=== PATIENT | female | born 1945 | race Caucasian/White ===

== ENCOUNTER 2021-12-24 05:52 | Observation (INO) ==
[2021-12-24 06:19] LABS: Basophils # 0.1 10*3/uL (0.0-0.2); Basophils % 0.7 % (0.0-0.8); Eosinophils # 0.3 10*3/uL (0.0-0.87); Eosinophils % 2.8 % (0.00-10.9); Hemoglobin 13.6 GM/DL (12.0-16.0); Immature Granulocytes % 0.3 %; Immature Granulocytes Absolute 0.03 #; Lymphocytes # 0.7 10*3/uL (1.4-4.0); Lymphocytes % 7.5 % (21.3-54.2); Mean Corpuscular Volume 90.5 FL (87-102); Monocytes # 0.8 10*3/uL (0.11-0.8); Monocytes % 8.4 % (1.7-12.7); Neutrophils % 80.3 % (38.7-73.9); Platelet Count 262 T/CUMM (130-400); Red Blood Count 4.42 MC/CUMM (3.8-5.5); Red Cell Distribution Width 12.5 % (9.3-17.3); White Blood Count 9.9 T/CUMM (4-12)
[2021-12-24] MEDS ORDERED: SODIUM CHLORIDE 0.9% 1,000 ML IV STA (06:35)
[2021-12-24 06:57] LABS: Albumin 3.3 G/DL (3.4-5.0); Bilirubin,Total 0.6 MG/DL (0.20-1.00); Calcium 9.4 MG/DL (8.5-10.1); Osmolality,Calculated 278.8 MOS/KG (273-304); Potassium 3.8 MMOL/L (3.5-5.1); Total Protein 5.8 G/DL (6.4-8.2)
[2021-12-24 07:12] LABS: PT Patient Result 10.6 SECS (10.5-12.0); Partial Thromboplastin Time 23.4 SECS (23.8-32.1)
[2021-12-24 07:17] LABS: Mucus,Urine Occasional /LPF (Occasional); RBC,Urine 1 /HPF (0-4); Squamous Epithelial Cell,Urine Occasional /HPF (0-10)
[2021-12-24 07:19] LABS: Bilirubin,Urine Negative (Negative); Blood, Urine Negative (Negative); Glucose,Urine (UA) Negative (Negative); Ketones,Urine Negative (Negative); Nitrite,Urine Negative (Negative); Protein,Urine Negative (Negative); Urine Appearance Clear (Clear); Urine Color Yellow (Yellow); Urine Specific Gravity 1.025 (1.001-1.035); Urine Urobilinogen 0.2 eU/dL (<2.0); Urine pH 5.5 (4.5-8.0)
[2021-12-24] MEDS ORDERED: ONDANSETRON 4 MG/2 ML VIAL IV PRN (12:22)
[2021-12-24] MEDS ORDERED: ACETAMINOPHEN 325 MG TABLET PO PRN (12:22)
[2021-12-24] MEDS: PANTOPRAZOLE 40 MG VIAL IV SCH (12:58)
[2021-12-24] MEDS: DOCUSATE SODIUM 100 MG CAPSULE PO SCH ×2 (13:01→21:39)
[2021-12-24] MEDS: SODIUM CHLORIDE 0.9% 1,000 ML IV SCH ×2 (13:02→21:50)
[2021-12-24] MEDS ORDERED: MAGNESIUM SULF RIDER 2 GM/50 ML PREMIX IV ONE (15:06)
[2021-12-24] MEDS ORDERED: traMADol 50 MG TABLET PO PRN (15:07)
[2021-12-24] MEDS ORDERED: traMADol 50 MG TABLET PO ONE (15:08)
[2021-12-24] MEDS ORDERED: cloNIDine 0.1 MG TABLET PO ONE (15:30)
[2021-12-24] MEDS: cloNIDine 0.1 MG TABLET PO SCH (21:39)
[2021-12-24] MEDS: hydroCHLOROthiazide 25 MG TABLET PO SCH (21:39)
[2021-12-24] MEDS: SPIRONOLACTONE 25 MG TABLET PO SCH (21:39)
[2021-12-25 05:20] LABS: Basophils # 0.1 10*3/uL (0.0-0.2); Basophils % 0.9 % (0.0-0.8); Eosinophils # 0.5 10*3/uL (0.0-0.87); Hematocrit 32.7 VOL% (35.7-47.0); Immature Granulocytes % 0.3 %; Immature Granulocytes Absolute 0.02 #; Lymphocytes # 2.3 10*3/uL (1.4-4.0); Lymphocytes % 33.1 % (21.3-54.2); Mean Corpuscular HGB Conc 33.6 GM/DL (32-36); Mean Corpuscular Volume 91.9 FL (87-102); Mean Platelet Volume 10.4 FL (9.6-12.0); Monocytes % 14.6 % (1.7-12.7); Neutrophils % 44.1 % (38.7-73.9); Platelet Count 208 T/CUMM (130-400); Red Blood Count 3.56 MC/CUMM (3.8-5.5); Red Cell Distribution Width 12.8 % (9.3-17.3); White Blood Count 6.9 T/CUMM (4-12)
[2021-12-25] MEDS: LEVOTHYROXINE 100 MCG TABLET PO SCH (05:52)
[2021-12-25] MEDS: SODIUM CHLORIDE 0.9% 1,000 ML IV SCH ×3 (05:53→23:06)
[2021-12-25] MEDS: ASPIRIN EC 81 MG TABLET PO SCH (09:44)
[2021-12-25] MEDS: SPIRONOLACTONE 25 MG TABLET PO SCH ×2 (09:44→20:55)
[2021-12-25] MEDS: DOCUSATE SODIUM 100 MG CAPSULE PO SCH ×2 (09:45→20:55)
[2021-12-25] MEDS: CITALOPRAM 20 MG TABLET PO SCH (09:45)
[2021-12-25] MEDS: cloNIDine 0.1 MG TABLET PO SCH ×2 (09:47→20:55)
[2021-12-25] MEDS: PANTOPRAZOLE 40 MG VIAL IV SCH (09:47)
[2021-12-25] MEDS: hydroCHLOROthiazide 25 MG TABLET PO SCH ×2 (09:47→20:54)
[2021-12-26] MEDS ORDERED: methylPREDNISolone ACETATE 40 MG/1 ML VIAL MISC INJ ONE (06:00)
[2021-12-26] MEDS ORDERED: LIDOCAINE 1% 20 ML VIAL MISC INJ ONE (06:00)
[2021-12-26] MEDS: SODIUM CHLORIDE 0.9% 1,000 ML IV SCH (06:26)
[2021-12-26 06:29] LABS: Basophils # 0.1 10*3/uL (0.0-0.2); Basophils % 0.7 % (0.0-0.8); Eosinophils # 0.5 10*3/uL (0.0-0.87); Eosinophils % 6.8 % (0.00-10.9); Hemoglobin 10.9 GM/DL (12.0-16.0); Immature Granulocytes % 0.1 %; Immature Granulocytes Absolute 0.01 #; Lymphocytes # 2.2 10*3/uL (1.4-4.0); Lymphocytes % 32.8 % (21.3-54.2); Mean Corpuscular Volume 91.4 FL (87-102); Mean Platelet Volume 9.9 FL (9.6-12.0); Monocytes # 0.7 10*3/uL (0.11-0.8); Monocytes % 9.8 % (1.7-12.7); Neutrophils % 49.8 % (38.7-73.9); Platelet Count 205 T/CUMM (130-400); Red Blood Count 3.61 MC/CUMM (3.8-5.5); Red Cell Distribution Width 12.7 % (9.3-17.3); White Blood Count 6.8 T/CUMM (4-12)
[2021-12-26 06:54] LABS: Calcium 8.1 MG/DL (8.5-10.1); Osmolality,Calculated 273.8 MOS/KG (273-304); Potassium 3.9 MMOL/L (3.5-5.1)
[2021-12-26] MEDS: LEVOTHYROXINE 100 MCG TABLET PO SCH (07:58)
[2021-12-26] MEDS: cloNIDine 0.1 MG TABLET PO SCH ×2 (10:09→21:08)
[2021-12-26] MEDS: SPIRONOLACTONE 25 MG TABLET PO SCH ×2 (10:10→21:09)
[2021-12-26] MEDS: CITALOPRAM 20 MG TABLET PO SCH (10:10)
[2021-12-26] MEDS: hydroCHLOROthiazide 25 MG TABLET PO SCH ×2 (10:10→21:09)
[2021-12-26] MEDS: ASPIRIN EC 81 MG TABLET PO SCH (10:10)
[2021-12-26] MEDS: PANTOPRAZOLE 40 MG VIAL IV SCH (10:11)
[2021-12-26] MEDS: DOCUSATE SODIUM 100 MG CAPSULE PO SCH ×2 (13:36→21:09)
[2021-12-27] MEDS: LEVOTHYROXINE 100 MCG TABLET PO SCH (05:42)
[2021-12-27] MEDS: SODIUM CHLORIDE 0.9% 1,000 ML IV SCH ×2 (07:36→14:30)
[2021-12-27] MEDS ORDERED: LACTATED RINGERS 1,000 ML IV SCH (08:00)
[2021-12-27] MEDS ORDERED: propofoL 200 MG/20 ML VIAL IV ONE (10:22)
[2021-12-27] MEDS ORDERED: LIDOCAINE 2% 5 ML VIAL ONE (10:22)
[2021-12-27 11:44] VITALS: BP 144/87
[2021-12-27] MEDS: cloNIDine 0.1 MG TABLET PO SCH (11:45)
[2021-12-27] MEDS: DOCUSATE SODIUM 100 MG CAPSULE PO SCH (11:45)
[2021-12-27] MEDS: ASPIRIN EC 81 MG TABLET PO SCH (11:45)
[2021-12-27] MEDS: PANTOPRAZOLE 40 MG VIAL IV SCH (11:45)
[2021-12-27] MEDS: hydroCHLOROthiazide 25 MG TABLET PO SCH (11:45)
[2021-12-27] MEDS: CITALOPRAM 20 MG TABLET PO SCH (11:45)
[2021-12-27] MEDS: SPIRONOLACTONE 25 MG TABLET PO SCH (11:45)
== END 2021-12-27 15:20 | disposition home or self-care (01) ==
LOC: EDBD → EDUNIT# → N.ED 05:52 → N.EDINP 05:52 → N.3E 16:12
PROVIDERS: ADMIT Internal Medicine; ATTEND Internal Medicine